=== PATIENT | male | born 1995 | race Caucasian/White ===

== ENCOUNTER 2018-02-26 15:26 | Emergency (ER) | payer OTHER ==
[~2018-02-26] VITALS: Ht 180.3 cm; Wt 54.8 kg
[2018-02-26] MEDS ORDERED: LANTUS 3 M100 UNITS1 SC ×2 (16:22→18:52)
[2018-02-26] MEDS ORDERED: WELLBUTRIN XL300 MG PO ×2 (16:22→18:29)
[2018-02-26] MEDS ORDERED: ALPRAZOLAM0.5 MG PO (16:23)
[2018-02-26] MEDS ORDERED: GABAPENTIN600 MG PO (16:23)
[2018-02-26] MEDS ORDERED: HUMALOG100 UNIT/1 SC (16:24)
[2018-02-26 17:16] LABS: HEMATOCRIT 37.9 % (38.0-50.0); HEMOGLOBIN 13.1 G/DL (12.5-16.6); MCH 31.7 PG (29.0-34.0); MCHC 34.6 G/DL (30.0-36.0); MCV 91.8 FL (86-99); PLATELET COUNT 327 K/uL (156-360); RBC DIS.WIDTH-CV 13.1 % (11.8-14.6); RBC DIS.WIDTH-SD 43.7 % (39-53); RED BLOOD COUNT 4.13 M/uL (4.00-5.50); WHITE BLOOD COUNT 5.2 K/uL (4.1-10.2)
[2018-02-26 17:25] LABS: CHLORIDE 106 mEq/L (99-109); POTASSIUM 3.9 mEq/L (3.7-5.4); SODIUM 143 mEq/L (136-147)
[2018-02-26 17:30] LABS: GFR ESTIMATE (CALCULATED) > 59 mL/min/ (58.99-99999)
[2018-02-26 17:31] LABS: UREA NITROGEN (BUN) 9 mg/dL (9-23)
[2018-02-26 17:40] LABS: GLUCOSE 511 mg/dL (70-99)
[2018-02-26] MEDS ORDERED: ALPRAZOLAM2 MG PO (18:29)
[2018-02-26] MEDS ORDERED: NEURONTIN600 MG PO (18:29)
[2018-02-26] MEDS ORDERED: LANTUS 10100 UNITS/ SC (18:29)
[2018-02-26 18:48] VITALS: BP 142/84
[2018-02-26] MEDS ORDERED: GRALISE600 MG PO (18:52)
== END 2018-02-26 19:25 | disposition home or self-care (01) ==
LOC: EME 15:26
PROVIDERS: Emergency Medicine
DX: E11.65 Type 2 diabetes mellitus with hyperglycemia (principal); Z91.14 Patient's other noncompliance with medication regimen; Z79.4 Long term (current) use of insulin; R42 Dizziness and giddiness; R07.9 Chest pain, unspecified; F17.200 Nicotine dependence, unspecified, uncomplicated
CPT/HCPCS: 80048; 82948; 85027; 99281; 99285; J7030

== ENCOUNTER 2018-03-04 00:15 | Emergency (ER) | payer OTHER ==
[~2018-03-04] VITALS: Ht 180.3 cm; Wt 67.6 kg
[~2018-03-04 00:15] MED LIST: ALPRAZOLAM0.5 MG PO; ALPRAZOLAM2 MG PO; GABAPENTIN600 MG PO; GRALISE600 MG PO; HUMALOG100 UNIT/1 SC; LANTUS 10100 UNITS/ SC; LANTUS 3 M100 UNITS1 SC; NEURONTIN600 MG PO; WELLBUTRIN XL300 MG PO
[2018-03-04 00:44] LABS: HEMATOCRIT 38.4 % (38.0-50.0); HEMOGLOBIN 13.1 G/DL (12.5-16.6); MCH 31.6 PG (29.0-34.0); MCHC 34.1 G/DL (30.0-36.0); MCV 92.5 FL (86-99); PLATELET COUNT 323 K/uL (156-360); RBC DIS.WIDTH-CV 12.6 % (11.8-14.6); RBC DIS.WIDTH-SD 42.9 % (39-53); RED BLOOD COUNT 4.15 M/uL (4.00-5.50); WHITE BLOOD COUNT 6.7 K/uL (4.1-10.2)
[2018-03-04 00:53] LABS: AMPHETAMINE NEGATIVE (500 ng/mL); BARBITURATES NEGATIVE (200 ng/mL); BENZODIAZEPINES PRESUMPTIVE POSITIVE (150 ng/mL); BUPRENORPHINE PRESUMPTIVE POSITIVE (10 ng/mL); COCAINE PRESUMPTIVE POSITIVE (150 ng/mL); METHADONE NEGATIVE (200 ng/mL); METHAMPHETAMINE NEGATIVE (500 ng/mL); OPIATES (MORPHINE) NEGATIVE (100 ng/mL); OXYCODONE NEGATIVE (100 ng/mL); PHENCYCLIDINE NEGATIVE (25 ng/mL); PROPOXYPHENE NEGATIVE (300 ng/mL); THC CANNABINOIDS NEGATIVE (50 ng/mL); TRICYCLIC ANTIDEPRESSANTS NEGATIVE (300 ng/mL)
[2018-03-04 00:55] LABS: ALBUMIN 3.8 g/dL (3.2-4.8); CHLORIDE 101 mEq/L (99-109); POTASSIUM 4.5 mEq/L (3.7-5.4); SODIUM 142 mEq/L (136-147)
[2018-03-04 00:57] LABS: TOTAL PROTEIN 6.2 g/dL (6.4-8.3)
[2018-03-04 00:58] LABS: GLUCOSE 551 mg/dL (70-99)
[2018-03-04 00:59] LABS: TOTAL BILIRUBIN 0.3 mg/dL (0.0-1.0)
[2018-03-04 01:00] LABS: SERUM ETHYL ALCOHOL 326 mg/dL
[2018-03-04 01:01] LABS: ALKALINE PHOSPHATASE 162 IU/L (3-129); CREATININE 0.9 mg/dL (0.6-1.3); GFR ESTIMATE (CALCULATED) > 59 mL/min/ (58.99-99999)
[2018-03-04 01:02] LABS: AST (GOT) 58 IU/L (2-34)
[2018-03-04 01:03] LABS: UREA NITROGEN (BUN) 16 mg/dL (9-23)
[2018-03-04 01:04] LABS: SALICYLATE < 5.0 MG/DL (15-30)
[2018-03-04 01:05] LABS: ACETAMINOPHEN (TYLENOL) < 10 mcg/mL (10-30); ALT (GPT) 62 IU/L (3-49); LIPASE 24 U/L (1.0-51.0)
[2018-03-04 01:48] LABS: PHOSPHORUS 2.9 mg/dL (2.5-4.9)
[2018-03-04 02:01] LABS: BASE EXCESS -4.3 mEq/L (-3 to +3); CARBOXY HGB 3.3 % (0-5); METHEMOGLOBIN 1.2 % (0-1.5); PCO2 50 mm Hg (35-45); PO2 87 mm Hg (80-100)
[2018-03-04 02:02] LABS: COMMENTS - BLOOD GASES C+; SITE LR; pH 7.27 (7.35-7.45)
[2018-03-04 02:29] LABS: BENZODIAZEPINES, URINE SCREEN Negative (200 ng/mL)
[2018-03-04 11:00] VITALS: BP 128/71
== END 2018-03-04 11:22 | disposition home or self-care (01) ==
LOC: EME → EDBD 00:15 → EME 00:15
PROVIDERS: Emergency Medicine
DX: F10.129 Alcohol abuse with intoxication, unspecified (principal); F14.10 Cocaine abuse, uncomplicated; E11.65 Type 2 diabetes mellitus with hyperglycemia; E86.0 Dehydration; F41.9 Anxiety disorder, unspecified; F32.9 Major depressive disorder, single episode, unspecified; Z79.4 Long term (current) use of insulin; F17.200 Nicotine dependence, unspecified, uncomplicated; Y90.8 Blood alcohol level of 240 mg/100 ml or more
CPT/HCPCS: 36600; 80053; 82010; 82803; 82948; 83690; 83735; 84100; 84999; 85027; 90837; 93005; 99281; 99285; G0480; J7030

== ENCOUNTER 2018-04-20 09:32 | Emergency (ER) | payer OTHER ==
[~2018-04-20] VITALS: Ht 165.1 cm; Wt 60.0 kg
[2018-04-20] MEDS ORDERED: ACULAR 0.5100 DROP/5 RIGHT EYE (12:39)
[2018-04-20 13:05] VITALS: BP 111/69
== END 2018-04-20 13:06 | disposition home or self-care (01) ==
LOC: EME 09:32
DX: H10.9 Unspecified conjunctivitis (principal); H11.32 Conjunctival hemorrhage, left eye; R05 Cough; Z79.4 Long term (current) use of insulin
CPT/HCPCS: 99281; 99283

== ENCOUNTER 2018-04-26 07:13 | Emergency (ER) | payer OTHER ==
[~2018-04-26 07:13] MED LIST changes: +ACULAR 0.5100 DROP/5 RIGHT EYE
[2018-04-26 07:50] LABS: BASOPHIL (%) 0.2 % (0-1); EOSINOPHIL (%) 0.1 % (0-5); HEMOGLOBIN 11.7 G/DL (12.5-16.6); IMMATURE GRANULOCYTE (%) 1.7 % (0.0-0.7); LYMPHOCYTE (%) 17.3 % (15-42); LYMPHOCYTE COUNT 1.4 K/uL (1.0-2.8); MCH 31.3 PG (29.0-34.0); MCHC 34.4 G/DL (30.0-36.0); MCV 90.9 FL (86-99); MONOCYTE (%) 6.4 % (3-12); MONOCYTE COUNT 0.5 K/uL (0-0.8); NEUTROPHIL (%) 74.3 % (45-76); NEUTROPHIL COUNT 6.2 K/uL (1.8-6.4); PLATELET COUNT 275 K/uL (156-360); RBC DIS.WIDTH-CV 12.2 % (11.8-14.6); RBC DIS.WIDTH-SD 40.6 % (39-53); RED BLOOD COUNT 3.74 M/uL (4.00-5.50); WHITE BLOOD COUNT 8.3 K/uL (4.1-10.2)
[2018-04-26 08:09] LABS: COMMENTS - BLOOD GASES A+C+; DEVICE VENT; FI02 30 %; MECHANICAL RATE 20 resp/min; MODE AC; PCO2 33 mm Hg (35-45); PEEP 5 CM/H20; PO2 128 mm Hg (80-100); SITE LEFT RADIAL; TIDAL VOLUME 500 ML; TOTAL RESP RATE 20 resp/min; pH 7.22 (7.35-7.45)
[2018-04-26 08:10] LABS: BASE EXCESS -13.1 mEq/L (-3 to +3); BICARBONATE 13.5 mEq/L (22-26); CARBOXY HGB 2.6 % (0-5); METHEMOGLOBIN 0.9 % (0-1.5)
[2018-04-26 08:17] LABS: APPEARANCE CLEAR ((CLEAR)); BILIRUBIN NEGATIVE; BLOOD SMALL; COLOR COLORLESS ((YELLOW)); GLUCOSE (STRIP) >=500; KETONES 20; LEUKOCYTES NEGATIVE; NITRITE NEGATIVE; PROTEIN (STRIP) NEGATIVE; SPECIFIC GRAVITY 1.014 (1.000-1.030); UROBILINOGEN 0.2 MG/DL (0.2-1.0)
[2018-04-26 08:25] LABS: BACTERIA NONE SEEN /HPF; EPITHELIAL CELLS NONE SEEN /HPF; MUCUS NONE SEEN /LPF; RED BLOOD CELLS 0-5 /HPF (0-5); UCUL ADDED? NO; WHITE BLOOD CELLS 0-5 /HPF (0-5)
[2018-04-26 08:29] LABS: AMYLASE 16 IU/L (1-118); CHLORIDE 103 MEQ/L (99-109); CREATININE 0.5 MG/DL (0.6-1.3); GFR ESTIMATE (CALCULATED) > 59 mL/min/ (58.99-99999); GLUCOSE 393 mg/dL (70-99); LIPASE 5 U/L (1.0-51.0); SERUM ETHYL ALCOHOL 93 mg/dL; SODIUM 137 MEQ/L (136-147); UREA NITROGEN (BUN) 8 mg/dL (9-23)
[2018-04-26 09:06] LABS: AMPHETAMINE NEGATIVE (500 ng/mL); BARBITURATES NEGATIVE (200 ng/mL); BENZODIAZEPINES PRESUMPTIVE POSITIVE (150 ng/mL); BUPRENORPHINE PRESUMPTIVE POSITIVE (10 ng/mL); COCAINE PRESUMPTIVE POSITIVE (150 ng/mL); METHADONE NEGATIVE (200 ng/mL); METHAMPHETAMINE NEGATIVE (500 ng/mL); OPIATES (MORPHINE) NEGATIVE (100 ng/mL); OXYCODONE NEGATIVE (100 ng/mL); PHENCYCLIDINE NEGATIVE (25 ng/mL); PROPOXYPHENE NEGATIVE (300 ng/mL); THC CANNABINOIDS NEGATIVE (50 ng/mL); TRICYCLIC ANTIDEPRESSANTS NEGATIVE (300 ng/mL)
[2018-04-26 09:45] LABS: BENZODIAZEPINES, URINE SCREEN POSITIVE (200 ng/mL)
== END 2018-04-26 10:20 | disposition short-term general hospital (02) ==
LOC: TRA 07:13
PROVIDERS: Emergency Medicine
PROC: 0BH17EZ Insertion of Endotracheal Airway into Trachea, Via Natural or Artificial Opening (ICD-10-PCS; principal; 2018-04-26)
PROC: 0T9B70Z Drainage of Bladder with Drainage Device, Via Natural or Artificial Opening (ICD-10-PCS; principal; 2018-04-26)
PROC: 5A0935Z Assistance with Respiratory Ventilation, Less than 24 Consecutive Hours (ICD-10-PCS; principal; 2018-04-26)
DX: S06.5X9A Traumatic subdural hemorrhage with loss of consciousness of unspecified duration, initial encounter (principal); S06.6X9A Traumatic subarachnoid hemorrhage with loss of consciousness of unspecified duration, initial encounter; S02.19XA Other fracture of base of skull, initial encounter for closed fracture; F10.129 Alcohol abuse with intoxication, unspecified; G96.0 Cerebrospinal fluid leak; R40.2432 Glasgow coma scale score 3-8, at arrival to emergency department; T68.XXXA Hypothermia, initial encounter; E11.65 Type 2 diabetes mellitus with hyperglycemia; E11.10 Type 2 diabetes mellitus with ketoacidosis without coma; Z79.4 Long term (current) use of insulin; J98.11 Atelectasis; F14.90 Cocaine use, unspecified, uncomplicated; F11.90 Opioid use, unspecified, uncomplicated; X58.XXXA Exposure to other specified factors, initial encounter; Y90.4 Blood alcohol level of 80-99 mg/100 ml
CPT/HCPCS: 36600; 70450; 70486; 71260; 72125; 72129; 72132; 74177; 80048; 81003; 82150; 82803; 83690; 84999; 85025; 86850; 86900; 86901; 87070; 87077; 87185; 87205; 90832; 93005; 94002; 99281; 99285; G0480